=== PATIENT | male | born 1945 | race Caucasian/White ===

== ENCOUNTER 2016-08-09 07:05 | Day surgery (SDC) | payer MEDICARE, OTHER ==
[~2016-08-09] VITALS: Ht 175.3 cm; Wt 89.1 kg
[~2016-08-09 07:05] MED LIST: LACTATED RINGERS 1,000 ML IV SCH; OXYMETAZOLINE 0.05% NASAL SPRAY (AFRIN) 15 ML BTL SCH; SODIUM CHLORIDE FLUSH 3 ML SYR IV SCH
[2016-08-09] MEDS ORDERED: PROPOFOL 20 ML IV ONE (07:38)
[2016-08-09] MEDS ORDERED: ALFENTANIL 500 MCG/ML (ALFENTA) 5 ML AMP IV ONE (07:38)
[2016-08-09] MEDS ORDERED: SUCCINYLCHOLINE 20 MG/ML 10 ML VIAL ONE (07:38)
[2016-08-09 07:46] VITALS: BP 140/94
[2016-08-09] MEDS ORDERED: MUPIROCIN 2% OINT 22 GM (BACTROBAN) TUBE TOP ONE (08:15)
[2016-08-09] MEDS ORDERED: OXYMETAZOLINE 0.05% NASAL SPRAY (AFRIN) 15 ML BTL ONE (08:15)
[2016-08-09] MEDS ORDERED: LIDOCAINE/EPINEPHRINE 1%-1:100,000 (XYLOCAINE) 20ML VIAL ONE (08:15)
[2016-08-09] MEDS ORDERED: ePHEDrine SULFATE 50 MG/ML 1 ML AMP ONE (09:14)
[2016-08-09 10:36] VITALS: BP 127/77
[2016-08-09] MEDS ORDERED: D5 1/2 NS W/KCL 20 MEQ/L 1,000 ML IV SCH (10:45)
[2016-08-09] MEDS ORDERED: ONDANSETRON 2 MG/ML (Z0FRAN) 2 ML VIAL IV PRN (10:45)
[2016-08-09] MEDS ORDERED: morphine INJ 2 MG/ML 1 ML SYRINGE IV PRN (10:45)
[2016-08-09] MEDS ORDERED: ACETAMINOPHEN/CODEINE 300MG/30 MG (TYLENOL #3) TABLET PO PRN (10:45)
[2016-08-09 11:02] VITALS: BP 143/97
[2016-08-09 11:13] VITALS: BP 130/88
[2016-08-09 11:37] VITALS: BP 148/84
[2016-08-09 11:59] VITALS: BP 136/83
[2016-08-09] MEDS ORDERED: HYPERTONIC SALINE IRRIGATION 1000 ML BTL IR SCH (21:00)
== END 2016-08-09 12:20 | disposition home or self-care (01) ==
LOC: ASC 07:05
PROVIDERS: ATTEND Otolaryngology
DX: J34.3 Hypertrophy of nasal turbinates (principal)
CPT/HCPCS: 30140; 30999; A9270; J0330; J7120